=== PATIENT | male | born 1995 | race Caucasian/White ===

== ENCOUNTER 2019-04-16 21:01 | Emergency (ER) | payer BC ==
[2019-04-16 21:14] VITALS: BP 145/62
[2019-04-16] MEDS ORDERED: Cephalexin CAP* 500 MG PO ONE ×2 (21:20→21:21)
--- NOTE | 2019-04-16 21:23 | UC ---
Skin Complaint HPI - HPI Summary HPI Summary: 23-year-old male comes in with a chief complaint of right arm infection. 2 days ago he had a tattoo placed on his upper arm. He noticed today that there is an area that's swollen erythematous and tender to palpation and has a bad smell to it. He had been keeping the area wrapped until today. No fevers or chills feels well otherwise. No history of MRSA a history of recurrent skin infections. - History of Current Complaint Chief Complaint: UCSkin Time Seen by Provider: 04/16/19 21:09 Stated Complaint: SKIN COMPLAINT Pain Intensity: 6 - Allergy/Home Medications Allergies/Adverse Reactions: Allergies Allergy/AdvReac Type Severity Reaction Status Date / Time No Known Allergies Allergy Unverified 04/16/19 21:14 PMH/Surg Hx/FS Hx/Imm Hx Previously Healthy: Yes - Surgical History Surgical History: None - Family History Known Family History: Positive: Non-Contributory - Social History Alcohol Use: Occasionally Substance Use Type: None Smoking Status (MU): Never Smoked Tobacco Review of Systems All Other Systems Reviewed And Are Negative: Yes Constitutional: Positive: Negative Skin: Positive: Other - SEE HPI Eyes: Positive: Negative ENT: Positive: Negative Respiratory: Positive: Negative Cardiovascular: Positive: Negative Gastrointestinal: Positive: Negative Motor: Positive: Negative Neurovascular: Positive: Negative Musculoskeletal: Positive: Negative Neurological: Positive: Negative Psychological: Positive: Negative Is Patient Immunocompromised?: No Physical Exam Triage Information Reviewed: Yes Appearance: Well-Appearing, No Pain Distress, Well-Nourished Vital Signs: Initial Vital Signs Temp 98.6 F 04/16/19 21:10 Pulse 73 04/16/19 21:10 Resp 16 04/16/19 21:10 BP 145/62 04/16/19 21:10 Pulse Ox 100 04/16/19 21:10 Vital Signs Reviewed: Yes Eye Exam: Normal Eyes: Positive: Conjunctiva Clear Neck: Positive: Supple Respiratory: Positive: No respiratory distress Musculoskeletal: Positive: Strength Intact, ROM Intact Neurological: Positive: Alert, Muscle Tone Normal Psychological: Positive: Age Appropriate Behavior Skin: Positive: Other - Right upper inner arm has a new tattoo at approximately 15 cm long by 6 cm wide. There is an area and the lower part of the tattoo approximate 4 cm before some years with some bubbling and erythema. Course/Dx - Course Course Of Treatment: We'll treat with Keflex as the patient has no history of MRSA. Also recommended leaving the tattoo "dry. Patient to get reevaluated if things are getting worse or he is not improving. Recommended going the emergency department if he felt worse. - Diagnoses Provider Diagnosis: Cellulitis of right upper arm Discharge ED - Sign-Out/Discharge Documenting (check all that apply): Patient Departure All imaging exams completed and their final reports reviewed: No Studies - Discharge Plan Condition: Stable Disposition: HOME Prescriptions: Cephalexin CAP* [Keflex CAP*] 500 mg PO QID #38 cap Patient Education Materials: Cellulitis (ED) Referrals: Alireza Singletary MD [Primary Care Provider] - Additional Instructions: FOLLOW UP WITH YOUR DOCTOR IF NOT COMPLETELY IMPROVED. GO TO THE EMERGENCY DEPARTMENT IF NOT IMPROVED OR WORSE; FEVER, SPREAD OF INFECTION, YOU FEEL ILL OR ANY QUESTIONS OR CONCERNS. - Billing Disposition and Condition Condition: STABLE Disposition: Home
== END 2019-04-16 21:36 | disposition home or self-care (01) ==
LOC: UCCORT 21:01
DX: L03.113 Cellulitis of right upper limb (principal)
CPT/HCPCS: 99212; A9270-GY; G0463